=== PATIENT | female | born 1960 | race Caucasian/White ===

== ENCOUNTER 2021-10-19 09:49 | Outpatient (CLI) | payer OTHER, SELFPAY ==
--- NOTE | ~2021-10-19 | MMUS_ITS ---
EXAMINATION: MM diagnostic rambo BI w katherin, US breast BI complete HISTORY: Palpable left breast lump. TECHNIQUE: Additional 3-D tomosynthesis images of the breasts were performed and synthetic 2-D images were generated. CAD analysis was submitted and interpreted. High resolution bilateral complete breas t ultrasound was performed. COMPARISON: Comparison to multiple prior studies sequentially, with oldest reviewed study dated 01/2012. BREAST PARENCHYMAL COMPOSITION: Breast composed of scattered areas of fibroglandular density FINDINGS: MAMMOGRAPHIC FINDINGS: There are focal asymmetries in the periareolar location of the right breast, although no discrete mas s identified. There is a new cluster of calcifications in the subareolar location of the left breast mass which are suspicious. There is increasing asymmetry of subareolar densities without discrete mas s in the left breast. ULTRASOUND: Complete bilateral US of all 4 quadrants of the breasts and retroareolar region was reviewed. Right breast: At 3:00 near the nipple in the subareolar location there is an 8 x 4 x 3 mm mass without internal vas cularity or posterior features. There is parallel configuration. This may reside within the duct. Left breast: There are multiple subareolar/periareolar nodules which appear to be ductal correspondin g to the area of new clustered indeterminate subareolar breast calcifications. The largest of which m easures 10 x 7 x 7 mm at 6:00 in the subareolar location. IMPRESSION: 1. Abnormal bilateral breast masses in the subareolar location, possibly ductal. New abnormal cluster of pleomorphic calcifications in the subareolar location of the left breast. 2. Bilateral ultrasound-guided breast biopsy recommended. Confirmation of tissue marker position with in the left breast calcifications is recommended. BI-RADS category 4, suspicious findings. Reviewed, dictated and finalized at location A. ULAR KNIFE CUTTER MACHINE IMPRESSION: 1. Abnormal bilateral breast masses in the subareolar location, possibly ductal . New abnormal cluster of pleomorphic calcifications in the subareolar location of the left breast. 2. Bilateral ultrasound-guided breast biopsy recommended. Confirmation of tissu e marker position within the left breast calcifications is recommended. BI-RADS category 4, suspicious findings.
== END 2021-10-19 09:50 | disposition home or self-care (01) ==
PROVIDERS: PCP Family Medicine; Visit Provider Nurse Practitioner
DX: N63.20 Unspecified lump in the left breast, unspecified quadrant (principal)
CPT/HCPCS: 76641; 77062; 77066; G0279

== ENCOUNTER 2021-12-20 15:25 | Outpatient (CLI) | payer OTHER, SELFPAY ==
--- NOTE | 2021-12-20 15:42 | ECG_ITS ---
Measurements Intervals [place] Rate: 60 P: 67 [place]: 169 QRS: 52 QRSD: 90 T: 50 QT: 380 QTc: 381 Interpretive Statements SINUS RHYTHM WITH OCCASIONAL SUPRAVENTRICULAR PREMATURE COMPLEXES LOW QRS VOLTAGE IN PRECORDIAL LEADS [QRS DEFLECTION < 1.0 mV IN CHEST LEADS] MINIMAL ST DEPRESSION [0.025+ mV ST DEPRESSION] NO PREVIOUS ECG AVAILABLE FOR COMPARISON Electronically Signed On 12-20-2021 19:03:17 CDT by Varsha Bridges M.D.
== END 2021-12-20 15:26 | disposition home or self-care (01) ==
PROVIDERS: PCP Family Medicine
DX: R92.8 Other abnormal and inconclusive findings on diagnostic imaging of breast (principal)
CPT/HCPCS: 93005

== ENCOUNTER 2021-12-24 08:44 | Outpatient (CLI) | payer OTHER, SELFPAY ==
[2021-12-24 12:28] LABS: SARS-CoV-2 RNA PCR Negative (Negative)
== END 2021-12-24 08:45 | disposition home or self-care (01) ==
LOC: CHSLAB 08:47
PROVIDERS: PCP Family Medicine; Visit Provider Family Medicine
DX: Z01.818 Encounter for other preprocedural examination (principal); Z20.822 Contact with and (suspected) exposure to COVID-19
CPT/HCPCS: C9803; U0003; U0005

== ENCOUNTER 2022-08-19 13:56 | Outpatient (RCR) | payer OTHER, SELFPAY ==
--- NOTE | 2022-08-19 15:10 | PTOPEVAL1 ---
Assessment and note entered by Collette Lake DPT Evaluation Information Assessment Status Evaluation Diagnosis Fracture of L radial head Onset 07/06/2022 Subjective Information Pt reports that she tripped on 07/06/2022 and she reached her arm out to stop her fall. She reported immediate pain afterwards and went to an urgent care. They performed an Xray and found she fractured her left radial head. She notes a lot of pain when twisting her arm or lifting objects, especially when she is moving clothes. She notes some numbness/tingling in an ulnar nerve distribution on her L. She reports that sleep is mostly unaffected. She fractured her R radius about 7 years ago and had a compression fracture about 10 years ago in her lumbar spine. She reports that as far as restrictions, she is not able to lift greater than a coffee mug or bear weight through her arm. She likes to sew. She has a follow up with her MD on 09/11. Reported Pain Level Pain Score 1: Self Report Assessment PT Clinical Summary Pt presents to PT s/p fracture of the L radial head. She experiences L elbow pain and radicular symptoms and demonstrates decreased range of motion, decreased strength, and increased neurodynamic sensitivity. Her current deficits make it more challenging for her to use her arm and elbow as needed for sewing, cooking, and doing laundry. She was provided with an HEP focused on improving range of motion and neurodynamic sensitivity within her tolerance and within her precautions. She will benefit from skilled PT to improve the aforementioned impairments, faciltate symptom relief, and return to functional and recreational activities. Plan of Care Interventions Electrical Stimulation,Hot Pack/Cold Pack,Manual Therapy,Patient/Caregiver Educati,Therapeutic Activities,Therapeutic Exercise PT Services Indicated Yes These treatments will address the objective and functional deficits as defined above. The patient will be advanced safely and appropriately in order for the patient to progress towards his/her prior level of function. Additional exercises will be introduced and as well as a comprehensive home exercise program upon discharge, if needed, ?to ensure carryover of functional gains achieved in the clinic. This treatment plan has been reviewed and agreement upon by the patient.
--- NOTE | 2022-09-12 15:06 | PTOPPROG ---
Assessment and note entered by Collette Lake DPT Evaluation Information Assessment Status Progress Diagnosis Fracture of L radial head Onset 07/06/2022 Subjective Information Pt reports that her appointment with her MD went well yesterday. Her Xray shows that her radius is healing well and as expected. More PT was ordered without any restrictions. Pt reports the most limited in her range of motion and when lifting heavy weights. She reports that her numbness and tingling has almost gone away completely but is still occasionally noticed like when sewing recently. Assessment PT Clinical Summary Pt presents to PT with significant improvements in pain, range of motion, neurodynamic sensitivity, and strength since her initial evaluation. She remains limited in functional range of motion and strength for household and recreational activities such as cooking, cleaning, sewing, and playing instruments. She will benefit from continued skilled PT to further facilitate symptom relief, improve the aforementioned impairments, and return to full functional and recreational activity participation. Plan of Care PT Services Indicated Yes Treatment Frequency and 2x week for 9 more visits Duration These treatments will address the objective and functional deficits as defined above. The patient will be advanced safely and appropriately in order for the patient to progress towards his/her prior level of function. Additional exercises will be introduced and as well as a comprehensive home exercise program upon discharge, if needed, ?to ensure carryover of functional gains achieved in the clinic. This treatment plan has been reviewed and agreement upon by the patient.
--- NOTE | 2022-10-21 14:52 | PTOPDC ---
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 she is unable to open jars on her own but feels she has improved. She reports she does not have pain with sewing activities but does notice her arm is unable to extend. lifting is still challenging. Reported Pain Level Pain Score 0: Self Report Assessment PT Clinical Summary Patient made significant progress in skilled PT. She met all goals set during POC including strength and ROM. She has been able to return to all house hold and sewing tasks at [facility]. She reports independence with HEP and is agreeable to DC at this time. Plan of Care Interventions Electrical Stimulation,Hot Pack/Cold Pack,Manual Therapy,Patient/Caregiver Educati,Therapeutic Activities,Therapeutic Exercise PT Services Indicated No Treatment Frequency and DC to independent HEP Duration
== END 2022-10-21 15:37 | disposition home or self-care (01) ==
LOC: CHSPT 13:56
PROVIDERS: PCP Family Medicine; Visit Provider Nurse Practitioner Family
DX: S52.125D Nondisplaced fracture of head of left radius, subsequent encounter for closed fracture with routine healing (principal)
CPT/HCPCS: 97014; 97110; 97140; 97161; G0283

== ENCOUNTER 2022-08-22 12:26 | Outpatient (CLI) | payer OTHER, SELFPAY ==
--- NOTE | ~2022-08-22 | DEXA_ITS ---
Bone Density Report Name: GABRIEL GUERRIER Age: 62 Sex: Female Ethnicity: White Date of : 1960 Indication: postmenopausal; screening for osteoporosis; height loss; prior fracture; Referring Provider: Zeferino, Tracee Study: Bone densitometry was performed. Exam Date: August 22, 2022 Accession number: [id number] Bone Density: Region BMD T-score Z-score Classification AP Spine(L1-L4) 1.014 -0.3 1.1 Normal Femoral Neck (Left) 0.721 -1.2 0.1 Osteopenia Total Hip (Left) 0.757 -1.5 -0.6 Osteopenia Femoral Neck (Right) 0.687 -1.5 -0.2 Osteopenia Total Hip (Right) 0.776 -1.4 -0.4 Osteopenia Femoral Neck Mean 0.704 -1.3 0.0 Osteopenia Total Hip Mean 0.766 -1.4 -0.5 Osteopenia World Health Organization criteria for BMD impression classify patients as: Normal (T-score at or above -1.0), Osteopenia (T-score between -1.0 and -2.5), or Osteoporosis (T-score at or below -2.5). 10-year Fracture Risk: FRAX not reported because: Prior hip or vertebral fracture Clinical Information Provided by Patient: Have had a previous hip or vertebral fracture Has had a low trauma fracture Has used the following medications: Vitamin D Patient maximum height was 70 Menopause Age: 44 No regular weight bearing exercise Drinks caffeinated beverages Onset of menses at age 13 Number of children 3 Impression: The patient has low bone mass, based on the Left Total Hip T-score. The patient has risk factors, including: previous fracture. Discussion: INCREASED RISK OF FRACTURE DUE TO HISTORY OF FRACTURE. The patient's previous fracture puts the patient at high risk of a future fracture. In untreated patients, the risk of osteoporotic fracture increases approximately two-fold for each 1.0 SD decrease in T-score. Low bone density is not the only risk factor for fracture; also consider factors such as patient's age, frailty or poor health, risk of falling, risk of injury, previous osteoporotic fracture, family history of osteoporosis, cigarette smoking, low body weight, etc. Not everyone with a low trauma fracture has osteoporosis; osteomalacia and other metabolic bone disorders should also be considered. Patients who have osteoporosis should be evaluated for specific diseases and conditions (secondary causes) that may cause or contribute to bone loss and fracture risk. National Osteoporosis Foundation (NOF) recommends pharmacologic intervention for patients with a prior hip or vertebral fracture regardless of BMD T-score. The patient should follow a healthful lifestyle (good nutrition with adequate calcium and vitamin D, and appropriate weight-bearing exercise). Follow-Up: Consider a repeat BMD and Vertebral Fracture Assessment (VFA) exam in 2 years or sooner if medically necessary, to reassess this patient
== END 2022-08-22 12:27 | disposition home or self-care (01) ==
LOC: CHSIMG 12:28
PROVIDERS: PCP Family Medicine; Visit Provider Nurse Practitioner
DX: Z78.0 Asymptomatic menopausal state (principal); Z13.820 Encounter for screening for osteoporosis
CPT/HCPCS: 77080

== ENCOUNTER 2023-02-05 09:14 | Outpatient (CLI) | payer OTHER, SELFPAY ==
--- NOTE | 2023-02-05 09:20 | ECG_ITS ---
Measurements Intervals [place] Rate: 51 P: 69 [place]: 169 QRS: 13 QRSD: 94 T: 13 QT: 388 QTc: 358 Interpretive Statements SINUS BRADYCARDIA DELAYED PRECORDIAL R/S TRANSITION BORDERLINE ST ABNORMALITY- INFERIOR LEADS BORDERLINE ECG COMPARED TO ECG 12/20/2021 15:51:55 SINUS BRADYCARDIA NOW PRESENT Electronically Signed On 02-05-2023 9:45:14 CDT by Mu Castle D.O.
== END 2023-02-05 09:15 | disposition home or self-care (01) ==
LOC: CHSCARD 09:17
PROVIDERS: PCP Family Medicine; Visit Provider Nurse Practitioner Family
DX: R00.2 Palpitations (principal); R00.1 Bradycardia, unspecified
CPT/HCPCS: 93005

== ENCOUNTER 2025-06-30 12:09 | Outpatient (CLI) | payer OTHER, SELFPAY ==
--- NOTE | ~2025-06-30 | DEXA_ITS ---
Bone Density Report Name: GABRIEL GUERRIER Age: 65 Sex: Female Ethnicity: White Date of : 1960 Indication: postmenopausal; screening for osteoporosis; prior fracture; Referring Provider: Gwen Almendarez Study: Bone densitometry was performed. Exam Date: June 30, 2025 Accession number: [id number] Bone Density: Region BMD T-score Z-score Classification AP Spine(L1-L4) 1.003 -0.4 1.2 Normal Femoral Neck (Left) 0.729 -1.1 0.3 Osteopenia Total Hip (Left) 0.892 -0.4 0.7 Normal Femoral Neck (Right) 0.647 -1.8 -0.4 Osteopenia Total Hip (Right) 0.755 -1.5 -0.4 Osteopenia Femoral Neck Mean 0.688 -1.4 0.0 Osteopenia Total Hip Mean 0.824 -1.0 0.1 Normal World Health Organization criteria for BMD impression classify patients as: Normal (T-score at or above -1.0), Osteopenia (T-score between -1.0 and -2.5), or Osteoporosis (T-score at or below -2.5). 10-year Fracture Risk: FRAX not reported because: Prior hip or vertebral fracture Clinical Information Provided by Patient: Have had a previous hip or vertebral fracture Has had a low trauma fracture Patient maximum height was 70 Menopause Age: 44 No regular weight bearing exercise Drinks caffeinated beverages Onset of menses at age 12 Number of children 3 Impression: The patient has low bone mass, based on the Right Femoral Neck T-score. The patient has risk factors, including: previous fracture. Discussion: INCREASED RISK OF FRACTURE DUE TO HISTORY OF FRACTURE. The patient's previous fracture puts the patient at high risk of a future fracture. In untreated patients, the risk of osteoporotic fracture increases approximately two-fold for each 1.0 SD decrease in T-score. Low bone density is not the only risk factor for fracture; also consider factors such as patient's age, frailty or poor health, risk of falling, risk of injury, previous osteoporotic fracture, family history of osteoporosis, cigarette smoking, low body weight, etc. Not everyone with a low trauma fracture has osteoporosis; osteomalacia and other metabolic bone disorders should also be considered. Patients who have osteoporosis should be evaluated for specific diseases and conditions (secondary causes) that may cause or contribute to bone loss and fracture risk. National Osteoporosis Foundation (NOF) recommends pharmacologic intervention for patients with a prior hip or vertebral fracture regardless of BMD T-score. The patient should follow a healthful lifestyle (good nutrition with adequate calcium and vitamin D, and appropriate weight-bearing exercise). Follow-Up: Consider a repeat BMD and Vertebral Fracture Assessment (VFA) exam in 2 years or sooner if medically necessary, to reassess this patient's status. Reported by: ZEYNEP on 06/30/2025 12:49:00 PM. Reviewed, dictated and finalized at location A.
--- OUTSIDE RECORDS SUMMARY | 2025-06-30 13:55 | XMS_ITS | Clinical Summary ---
Author Organization [facility] Address [address] [place] [address] Care Team Providers Care Senior Windows Administrator Name Role Phone Fernando Mckenna MD Primary Care Provider [phone] Allergies Active Allergy Reactions Criticality Noted Date Comments Latex Unknown 02/08/2015 Medications vitamin D2, ergocalciferol, (DRISDOL) 04718 UNITS capsule Take 1 capsule by mouth 2 (two) times daily. Active IMVEXXY MAINTENANCE PACK 10 MCG INSERT Take 1 applicator by mouth daily. 2 Active pantoprazole EC (PROTONIX) 40 MG tablet Take 40 mg by mouth 2 (two) times daily. 2 Active fish oil (OMEGA-3 FATTY ACID) 1000 MG Cap capsule Take 1,000 mg by mouth 2 (two) times daily. Active Glucosamine Sulfate 375 MG Tab Active Active Problems Problem Noted Date Diagnosed Date Closed nondisplaced fracture of head of left radius with routine healing, subsequent encounter 07/15/2022 Family History Medical History Relation Comments Cancer Father Diabetes Father Cancer Mother Diabetes Mother Relation Status Comments Brother Alive Father Alive Mother Alive Sister 1 Alive Sister 2 Alive Social History Tobacco Use Types Packs/Day Years Used Date Smoking Tobacco: Never Smokeless Tobacco: Never Tobacco Cessation:Counseling Given: Not Answered Alcohol Use Standard Drinks/Week Comments Yes 1.7 (1 standard drink = 0.6 oz p ure alcohol) Comments Unknown Sex and Gender Information Value Date Recorded Sex Assigned at Not on file Legal Sex Female 5:02 PM CDT Gender Identity Not on file Sexual Orientation Not on file Last Filed Vital Signs Vital Sign Reading Time Taken Comments Blood Pressure 120/78 10/01/2016 11:38 AM TECHNICAL ASSISTANCE CONSULTANT Pulse - - Temperature - - Respiratory Rate - - Oxygen Saturation - - Inhaled Oxygen Concentration - - Weight 72.6 kg (160 lb) 10/23/2022 2:29 PM TECHNICAL ASSISTANCE CONSULTANT Height 177.8 cm (5' 10) 10/23/2022 2:29 PM TECHNICAL ASSISTANCE CONSULTANT Body Mass Index 22.96 10/23/2022 2:29 PM TECHNICAL ASSISTANCE CONSULTANT Plan of Treatment Health Maintenance Due Date Last Done Comments Cervical Cancer Screening Pap Smear (Age 30 to 64) Every 3 Years 1960 Colorectal Cancer Screening Colonoscopy (10 Years) 1960 Annual Physical 1965 Hepatitis C 1980 Cervical Cancer Screening Pap with HPV Testing (Age 30 to 64) Every 5 Years 1992 Cervical Cancer Screening with HPV 1992 Mammogram Screening 2002 Pneumococcal Vaccine: 50+ Years (1 of 1 - PCV) 2012 Zoster Vaccines (1 of 2) 2012 DTaP, Tdap and Td Vaccines (2 - Td or Tdap) 06/01/2022 06/01/2012 COVID-19 Vaccine ( season) 2025 08/03/2021, 12/15/2020, 11/17/2020 Influenza Adult (#1) 2025 06/29/2021, 06/20/2020, 06/30/2019, Additional history exists RSV Immunization or 60+ Years (1 - 1-dose 75+ series) 2037 Meningococcal B Vaccine Aged Out No l onger eligible based on patient's age to complete this topic Meningococcal Vaccine Aged Out No kelli sonja eligible based on patient's age to complete this topic RSV Immunizations Under 20 Months Aged Out No longer eligible based on patient's age to complete this topic Insurance [employer] Care Teams Senior Windows Administrator Relationship Specialty Start Date End Date Fernando Mckenna MD [address] [place] [address] PCP - General FAMILY PRACTICE 07/15/22
== END 2025-06-30 12:10 | disposition home or self-care (01) ==
LOC: CHSIMG 12:10
PROVIDERS: PCP Family Medicine; Visit Provider Obstetrics & Gynecology Gynecology
DX: Z78.0 Asymptomatic menopausal state (principal); M85.89 Other specified disorders of bone density and structure, multiple sites
CPT/HCPCS: 77080